=== PATIENT | female | born 2000 | race Caucasian/White ===

== ENCOUNTER 2020-05-29 18:56 | Emergency (ER) | payer OTHER ==
[~2020-05-29] VITALS: Ht 157.5 cm; Wt 67.1 kg
== END 2020-05-30 02:49 | disposition home or self-care (01) ==
LOC: ER 18:56
DX: O26.891 Other specified pregnancy related conditions, first trimester (principal); R10.2 Pelvic and perineal pain; Z34.01 Encounter for supervision of normal first pregnancy, first trimester

== ENCOUNTER → 2020-07-26 | Outpatient (CLI) | payer OTHER | END | disposition home or self-care (01) | LOC: PRENATAL 15:30 | PROVIDERS: ATTEND Obstetrics & Gynecology Maternal & Fetal Medicine | DX: O35.0XX1 Maternal care for (suspected) central nervous system malformation in fetus, fetus 1 (principal); O35.3XX1 Maternal care for (suspected) damage to fetus from viral disease in mother, fetus 1; O98.512 Other viral diseases complicating pregnancy, second trimester; O34.211 Maternal care for low transverse scar from previous cesarean delivery; Z36.89 Encounter for other specified antenatal screening; Z3A.22 22 weeks gestation of pregnancy ==

== ENCOUNTER 2020-09-23 22:11 | Outpatient (CLI) | payer OTHER ==
[2020-09-23] MEDS ORDERED: PRENATAL CAPLE1 EAC1 PO (22:33)
== END 2020-09-24 13:09 | disposition home or self-care (01) ==
LOC: OBS/DEL 22:11 → LDR 22:12 → OBS/DEL 22:15
PROVIDERS: ATTEND Obstetrics & Gynecology
DX: O23.43 Unspecified infection of urinary tract in pregnancy, third trimester (principal)

== ENCOUNTER 2020-10-23 02:40 | Outpatient (CLI) | payer OTHER ==
[~2020-10-23 02:40] MED LIST: PRENATAL CAPLE1 EAC1 PO
[2020-10-23] MEDS ORDERED: KEFLEX500 MG PO (11:33)
== END 2020-10-23 12:22 | disposition home or self-care (01) ==
LOC: OBS/DEL 02:40
PROVIDERS: ATTEND Obstetrics & Gynecology
DX: O23.43 Unspecified infection of urinary tract in pregnancy, third trimester (principal)